=== PATIENT | female | born 1965 | race Caucasian/White ===

== ENCOUNTER 2017-10-08 08:50 | Emergency (ER) | payer OTHER ==
[~2017-10-08] VITALS: Ht 160 cm; Wt 64.0 kg
[2017-10-08] MEDS ORDERED: MOTRIN600 MG PO (10:33)
[2017-10-08] MEDS ORDERED: PEPCID20 MG PO (10:33)
[2017-10-08 11:08] VITALS: BP 122/68
== END 2017-10-08 11:08 | disposition home or self-care (01) ==
LOC: EME 08:50
DX: M76.9 Unspecified enthesopathy, lower limb, excluding foot (principal)
CPT/HCPCS: 99281; 99284; J1100